=== PATIENT | male | born 1985 | race Caucasian/White ===

== ENCOUNTER 2016-10-22 09:56 | Emergency (ER) | payer SELFPAY ==
[2016-10-22] MEDS ORDERED: ZOFRAN IV ONE ×2 (10:36→11:14)
[2016-10-22] MEDS ORDERED: TORADOL IV ONE (10:36)
[2016-10-22] MEDS ORDERED: TORADOL ONE (10:50)
[2016-10-22] MEDS ORDERED: SUBLIMAZE IV ONE (11:14)
--- NOTE | 2016-10-22 11:19 | Emergency Department Report ---
HPI - General Chief Complaint: Abdominal Pain Time Seen by Provider: 10/22/16 11:07 - HPI HPI: Room 2 The patient is a 31-year-old male presenting with a chief complaint of left flank pain. The patient states today while at work at approximately 08:307 onset of left-sided flank pain associated with nausea vomiting. Patient denies dysuria or hematuria. Patient denies fever. Patient denies any previous episodes of this pain. The patient was administered Toradol prior to my evaluation and currently gives his pain a score of 9.5/10 Location: Left flank Duration: Constant since 08:30 Quality: Pain Severity: 9.5/10 Modifying factors: [see above] Context: [see above] Mode of transportation: [not driving] ED Past Medical Hx - Past Medical History Previous Medical History?: No - Surgical History Past Surgical History?: No - Family History Family history: no significant - Social History Smoking Status: Former Smoker (none 5 years) Substance Use Type: Alcohol (moderate) - Medications Home Medications: Home Medications Medication Instructions Recorded Confirmed Last Taken Type HYDROcodone/APAP 5-325 [[place] 1 - 2 each PO Q6HR PRN #10 tablet 10/22/16 Unknown Rx 5/325] Ibuprofen [Motrin 800 MG tab] 800 mg PO Q8HR PRN #20 tablet 10/22/16 Unknown Rx ED Review of Systems ROS: Stated complaint: ABD PAIN Other details as noted in HPI Comment: All other systems reviewed and negative Constitutional: denies: chills, fever Eyes: denies: eye pain, eye discharge, vision change ENT: denies: ear pain, throat pain Respiratory: denies: cough, shortness of breath, wheezing Cardiovascular: denies: chest pain, palpitations Endocrine: no symptoms reported Gastrointestinal: abdominal pain, nausea, vomiting Genitourinary: denies: dysuria, hematuria Musculoskeletal: back pain. denies: joint swelling, arthralgia Skin: denies: rash, lesions Neurological: denies: headache, weakness, paresthesias Psychiatric: denies: anxiety, depression Hematological/Lymphatic: denies: easy bleeding, easy bruising Physical Exam - Physical Exam Vital Signs: Vital Signs 10/22/16 10/22/16 10:20 11:04 Temperature 97.6 F 97.9 F Pulse Rate 90 77 Respiratory 20 18 Rate Blood Pressure 143/104 Blood Pressure 131/81 [Left] O2 Sat by Pulse 98 100 Oximetry Physical Exam: GENERAL: The patient is well-developed well-nourished male lying on stretcher in the right lateral decubitus position appearing to be in moderate discomfort. [] HEENT: Normocephalic. Atraumatic. Extraocular motions are intact. Patient has moist mucous membranes. NECK: Supple. Trachea midline CHEST/LUNGS: Clear to auscultation. There is no respiratory distress noted. HEART/CARDIOVASCULAR: Regular. There is no tachycardia. There is no gallop rub or murmur. ABDOMEN: Abdomen is soft, mild discomfort to the left abdomen. There is no rebound or guarding. Patient has normal bowel sounds. There is no abdominal distention. SKIN: There is no rash. There is no edema. There is no diaphoresis. NEURO: The patient is awake, alert, and oriented. The patient is cooperative. The patient has normal speech MUSCULOSKELETAL: There is no evidence of acute injury. ED Course Vital Signs 10/22/16 10/22/16 10:20 11:04 Temperature 97.6 F 97.9 F Pulse Rate 90 77 Respiratory 20 18 Rate Blood Pressure 143/104 Blood Pressure 131/81 [Left] O2 Sat by Pulse 98 100 Oximetry ED Medical Decision Making - Lab Data Result diagrams: 10/22/16 11:23 10/22/16 11:23 Laboratory Tests 10/22/16 10/22/16 10/22/16 11:23 11:23 13:26 WBC 9.1 RBC 5.81 H Hgb 13.5 Hct 42.1 MCV 73 L MCH 23 L MCHC 32 RDW 15.3 H Plt Count 288 Lymph % (Auto) 13.4 [place] % (Auto) 5.6 Eos % (Auto) 1.6 Baso % (Auto) 0.5 Lymph # 1.2 [place] # 0.5 Eos # 0.1 Baso # 0.0 Seg Neutrophils % 78.9 H Seg Neutrophils # 7.2 Sodium 144 Potassium 3.9 Chloride 103.1 Carbon Dioxide 27 Anion Gap 18 BUN 17 Creatinine 1.2 Estimated GFR > 60 BUN/Creatinine Ratio 14.16 Glucose 149 H Calcium 8.9 Urine Color Yellow Urine Turbidity Turbid Urine pH 5.0 Ur Specific [place] 1.028 Urine Protein 100 mg/dl Urine Glucose (UA) Neg Urine Ketones 20 Urine Blood Neg Urine Nitrite Neg Urine Bilirubin Neg Urine Urobilinogen < 2.0 Ur Leukocyte Esterase Neg Urine WBC (Auto) < 1.0 Urine RBC (Auto) < 1.0 U Epithel Cells (Auto) 3.0 Urine Bacteria (Auto) 2+ Amorphous Crystals 1+ Urine Mucus 3+ - Radiology Data Radiology results: report reviewed (CT abdomen and pelvis), image reviewed (CT abdomen and pelvis) CT abdomen and pelvis (read by radiologist)-CT appearance may represent a 2-3 mm recently passed calculus, now in the urinary bladder. No additional radiopaque nephrolithiasis is noted. - Differential Diagnosis acute renal colic, pyelonephritis, diverticulitis Critical care attestation.: If time is entered above; I have spent that time in minutes in the direct care of this critically ill patient, excluding procedure time. ED Disposition Clinical Impression: Renal colic on left side Disposition: TO HOME OR SELFCARE Is pt being admited?: No Does the pt Need Aspirin: No Condition: Stable Instructions: Renal Colic (ED) Additional Instructions: Return to the emergency department immediately should you develop worsening symptoms, fever, inability to tolerate food or liquid or any other concerns. Prescriptions: HYDROcodone/APAP 5-325 [[place] 5/325] 1 - 2 each PO Q6HR PRN #10 tablet PRN Reason: Pain Ibuprofen [Motrin 800 MG tab] 800 mg PO Q8HR PRN #20 tablet PRN Reason: Pain Referrals: PRIMARY CARE, [Primary Care Provider] - 3-5 Days DESHAWN COLMENARES MD [Staff Physician] - 3-5 Days (Dr. Colmenares is a urologist. Please follow up with him for further evaluation) Time of Disposition: 13:55
[2016-10-22 11:36] LABS: Basophils % (Auto) 0.5 % (0.0-1.8); Eosinophils % (Auto) 1.6 % (0.0-4.3); Hematocrit 42.1 % (35.5-45.6); Hemoglobin 13.5 gm/dl (11.8-15.2); Mean Corpuscular HGB Conc 32 % (32-34); Mean Corpuscular Volume 73 fl (84-94); Platelet Count 288 K/mm3 (140-440); Red Blood Count 5.81 M/mm3 (3.65-5.03); Red Cell Distribution Width 15.3 % (13.2-15.2); White Blood Count 9.1 K/mm3 (4.5-11.0)
[2016-10-22 11:41] LABS: Mean Corpuscular Hemoglobin 23 pg (28-32)
[2016-10-22 11:57] LABS: Anion Gap 18 mmol/L; BUN/Creatinine Ratio 14.16; Blood Urea Nitrogen 17 mg/dL (9-20); Calcium 8.9 mg/dL (8.4-10.2); Carbon Dioxide 27 mmol/L (22-30); Chloride 103.1 mmol/L (98-107); Glucose 149 mg/dL (75-100); Potassium 3.9 mmol/L (3.6-5.0); Sodium 144 mmol/L (137-145)
--- NOTE | 2016-10-22 12:18 | Cat Scan Report ---
CT ABDOMEN AND PELVIS WITHOUT CONTRAST INDICATION: Left flank pain. COMPARISON: None similar at this institution. FINDINGS: Noncontrast abdomen and pelvis CT performed. LUNG BASES: Slight cardiomegaly. No effusions. Nonspecific distal esophageal wall prominence/thickening, not excluded for gastroesophageal reflux and/or hiatal hernia, amongst others. ABDOMEN: Please note that sensitivity to detect small visceral lesions is limited due to the absence of intravenous or oral contrast. Mild asymmetric prominence/fullness of the left ureter noted along its entire length with subtle surrounding fat stranding. Minimal fullness of the left intrarenal collecting system/pelvis as well. No radiopaque renal or ureteral calculi, though a 2-3 mm calculus may be noted midline in the urinary bladder dependently, axial image 319, series 2. Otherwise grossly unremarkable unenhanced liver, spleen, gallbladder, pancreas, adrenals, aorta, IVC and the right kidney. No ascites or size significant adenopathy. Nonopacified GI tract evaluation limited, though grossly nonobstructive. Cecum low lying in the mid pelvis. Few small mid descending colon diverticuli. PELVIS: Remainder non-opacified urinary bladder, seminal vesicles, prostate and rectosigmoid within normal limits. No free fluid or significant adenopathy. Unremarkable bones. CONCLUSION: 1. CT appearance may represent a 2-3 mm recently passed calculus, now in the urinary bladder, as described. No additional radiopaque nephrolithiasis noted. 2. Few other incidental findings as at the imaged lung bases, as above. Thank you for the opportunity to participate in this patient's care.
[2016-10-22] MEDS ORDERED: NACL 0.9% 1000 ML 1,000 ML IV ONE (13:21)
[2016-10-22 13:46] LABS: Bacteria,Urine 2+ /HPF (Negative); Bilirubin,Urine NEG (Negative); Blood,Urine NEG (Negative); Ketones,Urine 20 mg/dL (Negative); Leukocyte Esterase,Urine NEG (Negative); Mucus,Urine 3+ /HPF; Nitrite,Urine NEG (Negative); Urobilinogen,Urine < 2.0 mg/dL (<2.0)
[2016-10-22 13:47] LABS: RBC,Urine < 1.0 /HPF (0.0-6.0); WBC,Urine < 1.0 /HPF (0.0-6.0)
[2016-10-22] MEDS ORDERED: NORCO 5/325 PO ONE (13:52)
[2016-10-22 14:25] VITALS: BP 140/88
[2016-10-22] MEDS ORDERED: REGLAN IM ONE (14:38)
== END 2016-10-22 14:56 | disposition home or self-care (01) ==
LOC: ED 09:56
DX: N23 Unspecified renal colic (principal)
CPT/HCPCS: 36415; 74176; 80048; 81001; 85025; 96372; 96374; 96375; 96376; 99284; J1885; J2405; J2765